=== PATIENT | male | born 1975 | race Caucasian/White ===

== ENCOUNTER 2017-07-10 19:07 | Inpatient (IN) | payer OTHER ==
[~2017-07-10] VITALS: Ht 167.6 cm; Wt 93.9 kg
[2017-07-10 22:48] LABS: BASOPHILS % 0.9 % (0.0-2.0); EOSINOPHILS % 4.2 % (0.0-5.0); HEMATOCRIT. 36.7 % (42.0-52.0); HEMOGLOBIN. 12.5 g/dL (14.0-18.0); LYMPHOCYTES % 25.1 % (20.0-50.0); MEAN CORPUSCULAR HEMOGLOBIN 33.8 pg (28.0-32.0); MEAN CORPUSCULAR VOLUME 99.6 fL (80.0-94.0); MEAN PLATELET VOLUME 8.3 fl (7.4-10.4); MONOCYTES % 10.5 % (2.0-8.0); NEUTROPHILS % 59.3 % (40.0-76.0); PLATELET 59 x1000/uL (130-400); RED BLOOD CELL COUNT 3.68 mill/uL (4.7-6.1)
[2017-07-10 22:54] LABS: INR 1.2; PROTHROMBIN TIME 12.7 sec (9.4-11.6)
[2017-07-10 22:58] LABS: CARBON DIOXIDE 27 mEq/L (21-32); CHLORIDE 104 mEq/L (98-107)
[2017-07-10 23:01] LABS: D-DIMER 3.93 mg/L FEU (<0.50)
[2017-07-11 00:29] LABS: CLARITY URINE CLEAR (CLEAR); COLOR URINE YELLOW (YELLOW); GLUCOSE URINE NEGATIVE (NEGATIVE); KETONES URINE NEGATIVE (NEGATIVE); LEUKOCYTE ESTERASE URINE NEGATIVE (NEGATIVE); NITRITE URINE NEGATIVE (NEGATIVE); OCCULT BLOOD URINE 2+ (NEGATIVE); PROTEIN URINE 3+ (NEGATIVE)
[2017-07-11 04:36] VITALS: BP 131/90
[2017-07-11] MEDS ORDERED: GLYPIZIDE PO (06:36)
[2017-07-11] MEDS ORDERED: METFORMIN (06:37)
[2017-07-11 08:00] VITALS: BP 121/88
[2017-07-11 12:00] VITALS: BP 147/101
[2017-07-11] MEDS ORDERED: DIPHENHYDRAMINE 50MG/ML VIAL IV PRN (12:00)
[2017-07-11] MEDS ORDERED: IPRATROPIUM/ALBUTEROL 0.5-3(2.5)MG/3ML NEB INH PRN (12:00)
[2017-07-11] MEDS ORDERED: ONDANSETRON HCL 4MG/2ML VIAL IV PRN (12:00)
[2017-07-11] MEDS ORDERED: ACETAMINOPHEN 325MG TABLET PO PRN (12:00)
[2017-07-11] MEDS ORDERED: DEXTROSE 50% WATER 50ML SYRINGE IV PRN (12:00)
[2017-07-11] MEDS: HYDROCODONE/ACETAMINOPHEN 5/325MG TABLET PO PRN ×2 (12:33→17:53)
[2017-07-11] MEDS: CLONIDINE 0.1MG TABLET PO PRN ×2 (12:33→17:53)
[2017-07-11] MEDS: INSULIN LISPRO 100 UNITS/ML SUBCUT SCH ×2 (12:40→18:36)
[2017-07-11] MEDS: BLOOD SUGAR DIAGNOSTIC STRIP TEST SCH ×2 (12:41→17:59)
[2017-07-11] MEDS ORDERED: LOSARTAN POTASSIUM 25 MG TABLET PO SCH (12:45)
[2017-07-11] MEDS ORDERED: ATOR20TA PO (15:47)
[2017-07-11] MEDS ORDERED: KDUR10 PO (15:47)
[2017-07-11] MEDS ORDERED: HYDR-4001 PO (15:47)
[2017-07-11] MEDS ORDERED: FURO10VI3 PO (15:47)
[2017-07-11] MEDS ORDERED: LOSA25TA3 PO (15:47)
[2017-07-11 16:00] VITALS: BP 142/102
[2017-07-11] MEDS ORDERED: MULT-1146 PO (16:00)
[2017-07-11] MEDS ORDERED: THIJ IM (16:00)
[2017-07-11] MEDS ORDERED: FUROSEMIDE 40MG/4ML VIAL IVP SCH (17:15)
[2017-07-11 18:17] LABS: HEPATITIS B SURFACE ANTIGEN NEGATIVE
[2017-07-11 18:46] LABS: HEPATITIS B CORE AB IGM NEGATIVE
[2017-07-11 18:47] VITALS: BP 123/87
[2017-07-11 18:47] LABS: HEPATITIS A AB IGM NEGATIVE (NEGATIVE)
[2017-07-11] MEDS ORDERED: ATORVASTATIN CALCIUM 20MG TABLET PO SCH (21:00)
== END 2017-07-11 19:48 | disposition home or self-care (01) | DRG 462 ==
LOC: EDBD 19:07 → ER 22:18 → 8WST 07-11 → ENRESERV 07-11 03:07
PROVIDERS: ADMIT Internal Medicine; ATTEND Internal Medicine
DX: N04.9 Nephrotic syndrome with unspecified morphologic changes (principal); E43 Unspecified severe protein-calorie malnutrition; K74.60 Unspecified cirrhosis of liver; E11.9 Type 2 diabetes mellitus without complications; D64.9 Anemia, unspecified; Z86.73 Personal history of transient ischemic attack (TIA), and cerebral infarction without residual deficits; Z79.899 Other long term (current) drug therapy; Z79.84 Long term (current) use of oral hypoglycemic drugs; Z68.33 Body mass index [BMI] 33.0-33.9, adult
CPT/HCPCS: 36415; 71010; 76700; 80053; 81001; 82962; 83036; 83880; 84484; 85025; 85379; 85610; 85730; 86705; 86709; 86803; 87040; 87340; 93005; 93970; 97162; 99285; J1815; J1940

== ENCOUNTER 2018-04-23 09:28 | Emergency (ER) | payer OTHER ==
[~2018-04-23] VITALS: Ht 177.8 cm; Wt 85.0 kg
[~2018-04-23 09:28] MED LIST: ATOR20TA PO; FURO10VI3 PO; GLYPIZIDE PO; HYDR-4001 PO; KDUR10 PO; LOSA25TA3 PO; METFORMIN; MULT-1146 PO; THIJ IM
[2018-04-23 10:11] LABS: BASOPHILS % 1.4 % (0.0-2.0); EOSINOPHILS % 1.7 % (0.0-5.0); HEMATOCRIT. 37.5 % (42.0-52.0); HEMOGLOBIN. 12.9 g/dL (14.0-18.0); LYMPHOCYTES % 20.5 % (20.0-50.0); MEAN CORPUSCULAR HEMOGLOBIN 33.4 pg (28.0-32.0); MEAN CORPUSCULAR VOLUME 97.3 fL (80.0-94.0); MEAN PLATELET VOLUME 7.5 fl (7.4-10.4); MONOCYTES % 8.4 % (2.0-8.0); PLATELET 70 x1000/uL (130-400); RED BLOOD CELL COUNT 3.85 mill/uL (4.7-6.1); RED CELL DISTRIBUTION WIDTH 14.3 % (11.6-14.6)
[2018-04-23 10:16] LABS: CHLORIDE 105 mEq/L (98-107)
[2018-04-23 10:17] LABS: INR 1.1; PROTHROMBIN TIME 11.5 sec (9.4-11.6)
[2018-04-23] MEDS ORDERED: TRAMADOL 50MG TABLET PO ONE (11:00)
[2018-04-23 11:32] LABS: CLARITY URINE CLEAR (CLEAR); COLOR URINE YELLOW (YELLOW); KETONES URINE NEGATIVE (NEGATIVE); LEUKOCYTE ESTERASE URINE NEGATIVE (NEGATIVE); NITRITE URINE NEGATIVE (NEGATIVE); OCCULT BLOOD URINE 2+ (NEGATIVE); PH URINE 5.5 (4.5-8.0); PROTEIN URINE 4+ (NEGATIVE); SPECIFIC GRAVITY URINE 1.007 (1.005-1.030); UROBILINOGEN URINE 0.2 E.U./dL (0.2-1.0)
[2018-04-23 13:19] VITALS: BP 138/94
== END 2018-04-23 13:27 | disposition home or self-care (01) ==
LOC: ER 09:56
DX: K74.60 Unspecified cirrhosis of liver (principal); R60.0 Localized edema; R32 Unspecified urinary incontinence; I10 Essential (primary) hypertension; E11.9 Type 2 diabetes mellitus without complications; Z86.73 Personal history of transient ischemic attack (TIA), and cerebral infarction without residual deficits; Z91.14 Patient's other noncompliance with medication regimen
CPT/HCPCS: 36415; 80053; 81003; 83690; 85025; 85610; 93005; 93970; 99285; Z7610

== ENCOUNTER 2018-08-01 23:52 | Emergency (ER) | payer OTHER ==
[~2018-08-01] VITALS: Ht 165.1 cm; Wt 73.0 kg
[2018-08-02] MEDS ORDERED: KETOROLAC 30MG/ML VIAL IV ONE (05:00)
[2018-08-02 05:24] VITALS: BP 124/78
== END 2018-08-02 05:00 | disposition home or self-care (01) ==
LOC: ER 23:52
DX: S00.83XA Contusion of other part of head, initial encounter (principal); I10 Essential (primary) hypertension; Z86.73 Personal history of transient ischemic attack (TIA), and cerebral infarction without residual deficits; Z98.890 Other specified postprocedural states; Z79.899 Other long term (current) drug therapy; W18.39XA Other fall on same level, initial encounter; Y93.89 Activity, other specified; Y92.89 Other specified places as the place of occurrence of the external cause; Y99.8 Other external cause status
CPT/HCPCS: 36415; 70450; 96374; 99285; G0482; J1885; Z7610

== ENCOUNTER 2018-11-09 19:09 | Inpatient (IN) | payer MEDICAID, OTHER ==
[~2018-11-09] VITALS: Ht 167.6 cm; Wt 93.2 kg
[2018-11-09] MEDS ORDERED: FUROSEMIDE 40MG/4ML VIAL IVP ONE (19:45)
[2018-11-09 20:36] LABS: BASOPHILS % 0.8 % (0.0-2.0); EOSINOPHILS % 3.6 % (0.0-5.0); HEMATOCRIT. 26.8 % (42.0-52.0); HEMOGLOBIN. 8.8 g/dL (14.0-18.0); LYMPHOCYTES % 16.2 % (20.0-50.0); MEAN CORPUSCULAR HEMOGLOBIN 30.7 pg (28.0-32.0); MEAN CORPUSCULAR VOLUME 93.1 fL (80.0-94.0); MEAN PLATELET VOLUME 7.8 fl (7.4-10.4); MONOCYTES % 7.9 % (2.0-8.0); NEUTROPHILS % 71.5 % (40.0-76.0); PLATELET 141 x1000/uL (130-400); RED BLOOD CELL COUNT 2.88 mill/uL (4.7-6.1); RED CELL DISTRIBUTION WIDTH 15.3 % (11.6-14.6)
[2018-11-09 20:44] LABS: CHLORIDE 109 mEq/L (98-107)
[2018-11-09 20:45] LABS: INR 1.2; PARTIAL THROMBOPLASTIN TIME 29.3 sec (23.4-31.0); PROTHROMBIN TIME 11.6 sec (9.1-11.1)
[2018-11-09 20:51] LABS: ETHANOL BLOOD 153 mg/dL
[2018-11-10 11:46] VITALS: BP 139/79
[2018-11-10 11:47] VITALS: BP 139/79
[2018-11-10] MEDS ORDERED: METF-414 PO (12:16)
[2018-11-10] MEDS ORDERED: IPRATROPIUM/ALBUTEROL 0.5-3(2.5)MG/3ML NEB INH PRN (12:45)
[2018-11-10] MEDS ORDERED: ONDANSETRON HCL 4MG/2ML INJ IV PRN (12:45)
[2018-11-10] MEDS ORDERED: LORAZEPAM 2MG/ML CPJ IV PRN (12:45)
[2018-11-10] MEDS ORDERED: ACETAMINOPHEN 325MG TABLET PO PRN (12:45)
[2018-11-10] MEDS ORDERED: CLONIDINE 0.1MG TABLET PO PRN (12:45)
[2018-11-10] MEDS ORDERED: DOCUSATE SODIUM 100MG CAPSULE PO PRN (12:45)
[2018-11-10] MEDS ORDERED: CLONIDINE 0.2MG TABLET PO PRN (13:15)
[2018-11-10 14:42] LABS: HEPATITIS B SURFACE ANTIGEN NEGATIVE
[2018-11-10 15:12] LABS: HEPATITIS A AB IGM NEGATIVE (NEGATIVE)
[2018-11-10] MEDS: HYDRALAZINE HCL 50MG TABLET PO SCH ×2 (15:43→21:09)
[2018-11-10] MEDS: LOSARTAN POTASSIUM 25 MG TABLET PO SCH ×2 (15:43→23:19)
[2018-11-10] MEDS: POTASSIUM CHLORIDE 20MEQ TABLET SR PO SCH ×2 (15:43→20:47)
[2018-11-10] MEDS: FUROSEMIDE 40MG/4ML VIAL IVP SCH ×2 (15:43→20:43)
[2018-11-10 16:38] VITALS: BP 138/93
[2018-11-10] MEDS ORDERED: DEXTROSE 50% WATER 50ML SYRINGE IV PRN (19:00)
[2018-11-10 20:30] VITALS: BP 124/84
[2018-11-10] MEDS ORDERED: PNEUMOCOCCAL 23-VAL P-SAC VAC 0.5 ML IM ONE (20:30)
[2018-11-10] MEDS ORDERED: INFLUENZA VIRUS VACCINE(AFLURIA) 0.5ML SYR IM ONE (20:30)
[2018-11-10] MEDS: BLOOD SUGAR DIAGNOSTIC STRIP TEST SCH (20:48)
[2018-11-10] MEDS: INSULIN LISPRO 100 UNITS/ML SUBCUT SCH (20:48)
[2018-11-10 23:17] VITALS: BP 133/89
[2018-11-10] MEDS: HYDROCODONE/ACETAMINOPHEN 5/325MG TABLET PO PRN (23:20)
[2018-11-11 04:00] VITALS: BP 120/79
[2018-11-11] MEDS: HYDRALAZINE HCL 50MG TABLET PO SCH ×3 (05:16→22:00)
[2018-11-11 06:18] LABS: CHLORIDE 114 mEq/L (98-107)
[2018-11-11 06:23] LABS: BASOPHILS % 0.9 % (0.0-2.0); EOSINOPHILS % 9.8 % (0.0-5.0); HEMATOCRIT. 25.7 % (42.0-52.0); HEMOGLOBIN. 8.5 g/dL (14.0-18.0); LYMPHOCYTES % 20.9 % (20.0-50.0); MEAN CORPUSCULAR HEMOGLOBIN 30.9 pg (28.0-32.0); MEAN CORPUSCULAR VOLUME 93.2 fL (80.0-94.0); MEAN PLATELET VOLUME 8.4 fl (7.4-10.4); MONOCYTES % 10.1 % (2.0-8.0); NEUTROPHILS % 58.3 % (40.0-76.0); PLATELET 113 x1000/uL (130-400); RED BLOOD CELL COUNT 2.76 mill/uL (4.7-6.1); RED CELL DISTRIBUTION WIDTH 15.4 % (11.6-14.6)
[2018-11-11 06:32] LABS: PHOSPHORUS 4.1 mg/dL (2.5-4.9)
[2018-11-11 06:33] LABS: LDL CHOLESTEROL 59 mg/dL (5-100)
[2018-11-11 06:34] LABS: CREATINE KINASE 282 IU/L (39-308); CREATINE KINASE MB FRACTION 6.2 ng/mL (0.5-3.6)
[2018-11-11 06:35] LABS: HDL CHOLESTEROL 48 mg/dL (40-59)
[2018-11-11 08:00] VITALS: BP 121/73
[2018-11-11] MEDS: INSULIN LISPRO 100 UNITS/ML SUBCUT SCH ×4 (08:03→21:00)
[2018-11-11] MEDS: BLOOD SUGAR DIAGNOSTIC STRIP TEST SCH ×4 (08:03→21:00)
[2018-11-11] MEDS: LOSARTAN POTASSIUM 25 MG TABLET PO SCH ×2 (08:16→21:00)
[2018-11-11] MEDS: POTASSIUM CHLORIDE 20MEQ TABLET SR PO SCH ×2 (08:28→16:15)
[2018-11-11] MEDS: FUROSEMIDE 40MG/4ML VIAL IVP SCH ×2 (08:28→16:15)
[2018-11-11 12:00] VITALS: BP 134/87
[2018-11-11 16:00] VITALS: BP 123/83
[2018-11-11 20:00] VITALS: BP 114/78
[2018-11-11 22:04] LABS: HEMATOCRIT 24.5 % (42.0-52.0); HEMOGLOBIN 8.1 g/dL (14.0-18.0)
[2018-11-12] VITALS: BP 120/52
[2018-11-12 04:00] VITALS: BP 122/88
[2018-11-12] MEDS: HYDRALAZINE HCL 50MG TABLET PO SCH ×3 (06:00→21:15)
[2018-11-12 06:42] LABS: BASOPHILS % 0.6 % (0.0-2.0); EOSINOPHILS % 11.1 % (0.0-5.0); HEMATOCRIT. 25.1 % (42.0-52.0); HEMOGLOBIN. 8.3 g/dL (14.0-18.0); LYMPHOCYTES % 18.2 % (20.0-50.0); MEAN CORPUSCULAR HEMOGLOBIN 30.7 pg (28.0-32.0); MEAN CORPUSCULAR VOLUME 92.9 fL (80.0-94.0); MEAN PLATELET VOLUME 8.9 fl (7.4-10.4); MONOCYTES % 10.4 % (2.0-8.0); NEUTROPHILS % 59.7 % (40.0-76.0); PLATELET 96 x1000/uL (130-400); RED CELL DISTRIBUTION WIDTH 15.8 % (11.6-14.6)
[2018-11-12 06:44] LABS: INR 1.2; PARTIAL THROMBOPLASTIN TIME 27.8 sec (23.4-31.0); PROTHROMBIN TIME 11.7 sec (9.1-11.1)
[2018-11-12 06:54] LABS: CHLORIDE 115 mEq/L (98-107)
[2018-11-12 07:03] LABS: FERRITIN 83 ng/mL (22-322)
[2018-11-12 07:06] LABS: TOTAL IRON BINDING CAPACITY 164 ug/dL (250-450)
[2018-11-12] MEDS: BLOOD SUGAR DIAGNOSTIC STRIP TEST SCH ×4 (07:37→21:15)
[2018-11-12] MEDS: INSULIN LISPRO 100 UNITS/ML SUBCUT SCH ×4 (07:38→21:00)
[2018-11-12 07:47] LABS: VITAMIN B12 SERUM 1349 pg/mL (211-911)
[2018-11-12 08:18] VITALS: BP 140/84
[2018-11-12] MEDS ORDERED: PANTOPRAZOLE SODIUM 40 MG/VIAL IV SCH (09:00)
[2018-11-12] MEDS: LOSARTAN POTASSIUM 25 MG TABLET PO SCH ×2 (09:20→21:00)
[2018-11-12] MEDS: POTASSIUM CHLORIDE 20MEQ TABLET SR PO SCH ×2 (09:20→17:04)
[2018-11-12] MEDS: FUROSEMIDE 40MG/4ML VIAL IVP SCH ×2 (09:21→17:04)
[2018-11-12] MEDS ORDERED: SIMETHICONE 40 MG/0.6 ML 30ML ONE (12:36)
[2018-11-12 13:00] VITALS: BP 131/90
[2018-11-12] MEDS ORDERED: PROPOFOL 200MG/20ML VIAL IV ONE (13:41)
[2018-11-12] MEDS ORDERED: FENTANYL CITRATE/PF 50MCG/ML 2ML VIAL IV PRN (14:30)
[2018-11-12] MEDS ORDERED: ONDANSETRON HCL 4MG/2ML INJ IV PRN (14:30)
[2018-11-12] MEDS ORDERED: MORPHINE SULFATE 4 MG/ML CPJ (NOT FOR IM USE) IV PRN (14:30)
[2018-11-12] MEDS ORDERED: HYDROMORPHONE HCL/PF 2MG/ML CPJ IV PRN (14:30)
[2018-11-12] MEDS ORDERED: MEPERIDINE HCL/PF 25MG/ML CPJ IV PRN (14:30)
[2018-11-12 17:17] VITALS: BP 108/72
[2018-11-12 20:00] VITALS: BP 126/93
[2018-11-12 20:12] LABS: HEMATOCRIT 28.2 % (42.0-52.0); HEMOGLOBIN 9.2 g/dL (14.0-18.0)
[2018-11-12] MEDS: FAMOTIDINE 20MG TABLET PO SCH (21:16)
[2018-11-13] VITALS: BP 134/92
[2018-11-13 04:00] VITALS: BP 139/90
[2018-11-13] MEDS: HYDRALAZINE HCL 50MG TABLET PO SCH ×3 (06:00→21:47)
[2018-11-13] MEDS: INSULIN LISPRO 100 UNITS/ML SUBCUT SCH ×4 (06:54→21:55)
[2018-11-13] MEDS: BLOOD SUGAR DIAGNOSTIC STRIP TEST SCH ×4 (06:54→21:47)
[2018-11-13 07:10] LABS: BASOPHILS % 0.7 % (0.0-2.0); EOSINOPHILS % 9.1 % (0.0-5.0); HEMATOCRIT. 27.1 % (42.0-52.0); HEMOGLOBIN. 8.8 g/dL (14.0-18.0); LYMPHOCYTES % 14.1 % (20.0-50.0); MEAN CORPUSCULAR HEMOGLOBIN 30.7 pg (28.0-32.0); MEAN CORPUSCULAR VOLUME 94.4 fL (80.0-94.0); MEAN PLATELET VOLUME 8.8 fl (7.4-10.4); MONOCYTES % 9.1 % (2.0-8.0); PLATELET 100 x1000/uL (130-400); RED BLOOD CELL COUNT 2.87 mill/uL (4.7-6.1); RED CELL DISTRIBUTION WIDTH 15.6 % (11.6-14.6)
[2018-11-13 07:21] LABS: CHLORIDE 116 mEq/L (98-107)
[2018-11-13 08:00] VITALS: BP 130/86
[2018-11-13 09:09] LABS: FOLATE HEMATOCRIT 24.8 % (37.5-51.0)
[2018-11-13] MEDS: FUROSEMIDE 40MG/4ML VIAL IVP SCH ×2 (09:20→17:55)
[2018-11-13] MEDS: LOSARTAN POTASSIUM 25 MG TABLET PO SCH ×2 (09:21→21:47)
[2018-11-13] MEDS: POTASSIUM CHLORIDE 20MEQ TABLET SR PO SCH ×2 (09:21→17:55)
[2018-11-13] MEDS: FAMOTIDINE 20MG TABLET PO SCH ×2 (09:21→21:47)
[2018-11-13] MEDS: HYDROCODONE/ACETAMINOPHEN 5/325MG TABLET PO PRN (09:22)
[2018-11-13] MEDS ORDERED: LIDOCAINE HCL 1% 20ML VIAL (Pyxis) INJ ONE (10:54)
[2018-11-13] MEDS ORDERED: SODIUM BICARBONATE 4% (2.4MEQ) 5ML VIAL IV ONE (10:55)
[2018-11-13 12:00] VITALS: BP 127/84
[2018-11-13 16:00] VITALS: BP 132/89
[2018-11-13 19:11] LABS: FOLATE HEMOLYSATE 335.4 ng/mL (Not Estab.); FOLATE RBC 1352 ng/mL (>498)
[2018-11-13 20:00] VITALS: BP 126/85
[2018-11-13] MEDS: PROPRANOLOL HCL 10MG TABLET PO SCH (21:47)
[2018-11-14] VITALS: BP 117/77
[2018-11-14 02:17] LABS: *AMPHETAMINES SCREEN URINE NEGATIVE (NEGATIVE); *BARBITURATES SCREEN URINE NEGATIVE (NEGATIVE); *BENZODIAZEPINES SCREEN URINE NEGATIVE (NEGATIVE)
[2018-11-14 02:18] LABS: *COCAINE SCREEN URINE NEGATIVE (NEGATIVE); CANNABINOID URINE SCREEN NEGATIVE (NEGATIVE); METHADONE URINE SCREEN NEGATIVE (NEGATIVE); OPIATES URINE SCREEN PRESUMTIVE POSITIVE (NEGATIVE); PHENCYCLIDINE URINE SCREEN NEGATIVE (NEGATIVE)
[2018-11-14 04:00] VITALS: BP 117/69
[2018-11-14] MEDS: INSULIN LISPRO 100 UNITS/ML SUBCUT SCH ×2 (06:40→13:10)
[2018-11-14] MEDS: HYDRALAZINE HCL 50MG TABLET PO SCH (06:40)
[2018-11-14] MEDS: BLOOD SUGAR DIAGNOSTIC STRIP TEST SCH ×2 (06:40→12:40)
[2018-11-14 07:41] LABS: BASOPHILS % 0.7 % (0.0-2.0); EOSINOPHILS % 10.1 % (0.0-5.0); HEMATOCRIT. 24.7 % (42.0-52.0); HEMOGLOBIN. 8.2 g/dL (14.0-18.0); LYMPHOCYTES % 17.2 % (20.0-50.0); MEAN CORPUSCULAR HEMOGLOBIN 31.1 pg (28.0-32.0); MEAN CORPUSCULAR VOLUME 93.6 fL (80.0-94.0); MEAN PLATELET VOLUME 9.6 fl (7.4-10.4); MONOCYTES % 10.7 % (2.0-8.0); NEUTROPHILS % 61.3 % (40.0-76.0); PLATELET 89 x1000/uL (130-400); RED BLOOD CELL COUNT 2.64 mill/uL (4.7-6.1); RED CELL DISTRIBUTION WIDTH 15.7 % (11.6-14.6)
[2018-11-14] MEDS: LOSARTAN POTASSIUM 25 MG TABLET PO SCH (08:31)
[2018-11-14] MEDS: FUROSEMIDE 40MG/4ML VIAL IVP SCH (08:31)
[2018-11-14] MEDS: FAMOTIDINE 20MG TABLET PO SCH (08:31)
[2018-11-14] MEDS: POTASSIUM CHLORIDE 20MEQ TABLET SR PO SCH (08:31)
[2018-11-14] MEDS: PROPRANOLOL HCL 10MG TABLET PO SCH (08:31)
[2018-11-14 09:20] LABS: CHLORIDE 115 mEq/L (98-107)
[2018-11-14 16:43] VITALS: BP 120/65
== END 2018-11-14 17:17 | disposition home or self-care (01) | DRG 280 ==
LOC: ER 19:09 → 7WST 23:40 → EDBEDREQ 11-10 00:19 → EDBEDREQDT 11-10 00:19 → EDBEDREQTM 11-10 00:19 → ENRESERV 11-10 10:32
PROVIDERS: ADMIT Internal Medicine; ATTEND Internal Medicine
PROC: 0DB78ZX Excision of Stomach, Pylorus, Via Natural or Artificial Opening Endoscopic, Diagnostic (ICD-10-PCS; 2018-11-12)
PROC: 0W9G3ZZ Drainage of Peritoneal Cavity, Percutaneous Approach (ICD-10-PCS; principal; 2018-11-13)
DX: K70.31 Alcoholic cirrhosis of liver with ascites (principal); D69.6 Thrombocytopenia, unspecified; E66.01 Morbid (severe) obesity due to excess calories; I11.0 Hypertensive heart disease with heart failure; I50.9 Heart failure, unspecified; E88.09 Other disorders of plasma-protein metabolism, not elsewhere classified; I85.10 Secondary esophageal varices without bleeding; K76.6 Portal hypertension; E11.9 Type 2 diabetes mellitus without complications; D63.8 Anemia in other chronic diseases classified elsewhere; J45.909 Unspecified asthma, uncomplicated; Y90.6 Blood alcohol level of 120-199 mg/100 ml; N50.89 Other specified disorders of the male genital organs; R79.1 Abnormal coagulation profile; R80.9 Proteinuria, unspecified; F10.229 Alcohol dependence with intoxication, unspecified; R16.2 Hepatomegaly with splenomegaly, not elsewhere classified; K29.70 Gastritis, unspecified, without bleeding; K31.89 Other diseases of stomach and duodenum; K80.20 Calculus of gallbladder without cholecystitis without obstruction; Z86.73 Personal history of transient ischemic attack (TIA), and cerebral infarction without residual deficits; Z79.899 Other long term (current) drug therapy; Z79.84 Long term (current) use of oral hypoglycemic drugs; Z68.33 Body mass index [BMI] 33.0-33.9, adult
CPT/HCPCS: 36415; 49083; 71045; 74176; 76705; 78582; 80048; 80061; 80076; 80305; 82040; 82105; 82140; 82270; 82550; 82553; 82607; 82728; 82747; 82962; 83036; 83540; 83550; 83615; 83735; 83880; 84100; 84443; 84484; 85014; 85018; 85379; 86705; 86709; 86803; 87340; 88108; 88305; 88312; 88313; 90686; 90732; 93005; 93306; 93970; 96374; 99285; A9558; C9113; G0482; J1815; J1940; J2704; J3490

== ENCOUNTER 2018-11-28 09:06 | Inpatient (IN) | payer MEDICAID, OTHER ==
[~2018-11-28] VITALS: Ht 162.6 cm; Wt 105.2 kg
[~2018-11-28 09:06] MED LIST changes: +METF-414 PO
[2018-11-28 10:05] LABS: BG BASE EXCESS -8.9 mmol/L (-2.0-2.0); BG CARBOXYHEMOGLOBIN 0.9 % (0.5-1.5); BG DEOXYHEMOGLOBIN 1.4 % (0.0-5.0); BG FRACTION INSPIRED OXYGEN 32; BG HCO3 ACT 17.2 mmol/L (22.0-26.0); BG METHEMOGLOBIN 0.4 % (0.0-1.5); BG OXYGEN SATURATION 98.6 % (92.0-98.5); BG OXYHEMOGLOBIN 97.3 % (94.0-97.0); BG PCO2 37.9 mmHg (35.0-45.0); BG PH 7.274 (7.350-7.450); BG PO2 144.7 mmHg (75.0-100.0); BG SAMPLE SITE RIGHT RADIAL; BG TOTAL HEMOGLOBIN 7.9 g/dL (12.0-18.0); BG VENT MODE NASAL CANNULA
[2018-11-28 10:21] LABS: BASOPHILS % 0.8 % (0.0-2.0); EOSINOPHILS % 7.3 % (0.0-5.0); HEMATOCRIT. 23.5 % (42.0-52.0); HEMOGLOBIN. 7.5 g/dL (14.0-18.0); LYMPHOCYTES % 16.8 % (20.0-50.0); MEAN CORPUSCULAR HEMOGLOBIN 30.2 pg (28.0-32.0); MEAN CORPUSCULAR VOLUME 95.3 fL (80.0-94.0); MEAN PLATELET VOLUME 8.6 fl (7.4-10.4); MONOCYTES % 10.1 % (2.0-8.0); PLATELET 143 x1000/uL (130-400); RED BLOOD CELL COUNT 2.46 mill/uL (4.7-6.1); RED CELL DISTRIBUTION WIDTH 15.7 % (11.6-14.6)
[2018-11-28 10:28] LABS: CHLORIDE 117 mEq/L (98-107)
[2018-11-28 10:36] LABS: ETHANOL BLOOD < 10 mg/dL
[2018-11-28] MEDS ORDERED: DEXTROSE 50% WATER 50ML SYRINGE IV ONE (10:45)
[2018-11-28] MEDS ORDERED: FUROSEMIDE 100MG/10ML VIAL IV ONE (10:45)
[2018-11-28] MEDS ORDERED: CALCIUM GLUCONATE 1,000 MG in DEXT 5% WATER 100 ML IV ONE (10:45)
[2018-11-28] MEDS ORDERED: INSULIN REGULAR (HUMULIN R) 300UNITS/3ML IV ONE (10:45)
[2018-11-28] MEDS ORDERED: CLONIDINE 0.1MG TABLET PO PRN (14:15)
[2018-11-28] MEDS ORDERED: DOCUSATE SODIUM 100MG CAPSULE PO PRN (14:15)
[2018-11-28] MEDS ORDERED: IPRATROPIUM/ALBUTEROL 0.5-3(2.5)MG/3ML NEB INH PRN (14:15)
[2018-11-28] MEDS ORDERED: LORAZEPAM 0.5MG TABLET PO PRN (14:15)
[2018-11-28] MEDS ORDERED: ONDANSETRON HCL 4MG/2ML INJ IV PRN (14:15)
[2018-11-28] MEDS ORDERED: ACETAMINOPHEN 325MG TABLET PO PRN (14:15)
[2018-11-28 14:16] VITALS: BP 133/89
[2018-11-28 14:37] VITALS: BP 133/89
[2018-11-28] MEDS ORDERED: IPRATROPIUM/ALBUTEROL 0.5-3(2.5)MG/3ML NEB HHN PRN (15:00)
[2018-11-28 15:48] LABS: FOLIC ACID (FOLATE) SERUM 8.3 ng/mL (>5.38)
[2018-11-28 15:57] LABS: INR 1.2; PARTIAL THROMBOPLASTIN TIME 29.6 sec (23.4-31.0); PROTHROMBIN TIME 11.6 sec (9.1-11.1)
[2018-11-28 16:00] VITALS: BP 136/80
[2018-11-28 16:00] LABS: BG BASE EXCESS -9.2 mmol/L (-2.0-2.0); BG CARBOXYHEMOGLOBIN 0.5 % (0.5-1.5); BG DEOXYHEMOGLOBIN 1.6 % (0.0-5.0); BG FRACTION INSPIRED OXYGEN 28; BG HCO3 ACT 16.7 mmol/L (22.0-26.0); BG METHEMOGLOBIN 0.4 % (0.0-1.5); BG OXYGEN SATURATION 98.4 % (92.0-98.5); BG OXYHEMOGLOBIN 97.5 % (94.0-97.0); BG PCO2 35.8 mmHg (35.0-45.0); BG PH 7.286 (7.350-7.450); BG PO2 135.5 mmHg (75.0-100.0); BG SAMPLE SITE RIGHT RADIAL; BG TOTAL HEMOGLOBIN 8.1 g/dL (12.0-18.0); BG VENT MODE NASAL CANNULA
[2018-11-28] MEDS: FUROSEMIDE 40MG/4ML VIAL IVP SCH (18:01)
[2018-11-28] MEDS: IPRATROPIUM/ALBUTEROL 0.5-3(2.5)MG/3ML NEB HHN SCH (19:45)
[2018-11-28 20:00] VITALS: BP 116/70
[2018-11-28 23:54] LABS: CLARITY URINE CLEAR (CLEAR); COLOR URINE YELLOW (YELLOW); KETONES URINE NEGATIVE (NEGATIVE); LEUKOCYTE ESTERASE URINE NEGATIVE (NEGATIVE); NITRITE URINE NEGATIVE (NEGATIVE); OCCULT BLOOD URINE 1+ (NEGATIVE); PROTEIN URINE 2+ (NEGATIVE); SPECIFIC GRAVITY URINE 1.009 (1.005-1.030); UROBILINOGEN URINE 0.2 E.U./dL (0.2-1.0)
[2018-11-29] VITALS (9 sets, daily range): BP systolic 111–144; BP diastolic 60–90
[2018-11-29 00:17] LABS: *BENZODIAZEPINES SCREEN URINE NEGATIVE (NEGATIVE); *COCAINE SCREEN URINE NEGATIVE (NEGATIVE); METHADONE URINE SCREEN NEGATIVE (NEGATIVE); PHENCYCLIDINE URINE SCREEN NEGATIVE (NEGATIVE)
[2018-11-29 00:18] LABS: CANNABINOID URINE SCREEN NEGATIVE (NEGATIVE)
[2018-11-29 00:19] LABS: *AMPHETAMINES SCREEN URINE NEGATIVE (NEGATIVE); *BARBITURATES SCREEN URINE NEGATIVE (NEGATIVE)
[2018-11-29 00:21] LABS: OPIATES URINE SCREEN NEGATIVE (NEGATIVE)
[2018-11-29] MEDS: IPRATROPIUM/ALBUTEROL 0.5-3(2.5)MG/3ML NEB HHN SCH ×2 (02:06→08:18)
[2018-11-29 05:55] LABS: BASOPHILS % 0.9 % (0.0-2.0); HEMATOCRIT. 21.2 % (42.0-52.0); LYMPHOCYTES % 21.6 % (20.0-50.0); MEAN CORPUSCULAR HEMOGLOBIN 30.7 pg (28.0-32.0); MEAN CORPUSCULAR VOLUME 93.8 fL (80.0-94.0); MEAN PLATELET VOLUME 8.8 fl (7.4-10.4); MONOCYTES % 13.9 % (2.0-8.0); NEUTROPHILS % 56.6 % (40.0-76.0); PLATELET 120 x1000/uL (130-400); RED BLOOD CELL COUNT 2.26 mill/uL (4.7-6.1); RED CELL DISTRIBUTION WIDTH 15.5 % (11.6-14.6)
[2018-11-29] MEDS: FUROSEMIDE 40MG/4ML VIAL IVP SCH ×2 (06:44→06:50)
[2018-11-29 06:46] LABS: HEMOGLOBIN. 6.9 g/dL (14.0-18.0)
[2018-11-29] MEDS ORDERED: SPIRONOLACTONE 25MG TABLET PO SCH (09:00)
[2018-11-29] MEDS ORDERED: THIAMINE HCL 100 MG/1 ML 2ML VIAL IM SCH (09:00)
[2018-11-29] MEDS: THIAMINE HCL 100MG TABLET PO SCH (09:13)
[2018-11-29] MEDS ORDERED: SODIUM BICARBONATE 8.4% 1 MEQ/ML 50ML SYR IV STA (09:48)
[2018-11-29] MEDS ORDERED: DEXTROSE 50% WATER 50ML SYRINGE IV STA (09:48)
[2018-11-29] MEDS ORDERED: INSULIN REGULAR (HUMULIN R) UD 100 UNITS/ML SYR IV SCH (09:48)
[2018-11-29] MEDS ORDERED: SODIUM POLYSTYRENE SULFONATE 15 G/60 ML BOT PO SCH (10:00)
[2018-11-29] MEDS ORDERED: FUROSEMIDE 40MG/4ML VIAL IVP SCH (12:00)
[2018-11-29 12:54] LABS: BG BASE EXCESS -7.7 mmol/L (-2.0-2.0); BG CARBOXYHEMOGLOBIN 0.8 % (0.5-1.5); BG DEOXYHEMOGLOBIN 3.1 % (0.0-5.0); BG METHEMOGLOBIN 0.1 % (0.0-1.5); BG OXYGEN SATURATION 96.9 % (92.0-98.5); BG PCO2 30.5 mmHg (35.0-45.0); BG PH 7.363 (7.350-7.450); BG PO2 97.2 mmHg (75.0-100.0); BG SAMPLE SITE RIGHT RADIAL; BG TOTAL HEMOGLOBIN 7.1 g/dL (12.0-18.0); BG VENT MODE ROOM AIR
[2018-11-29] MEDS: ALBUTEROL (0.083%) 2.5MG/3ML NEB HHN SCH ×2 (15:45→20:25)
[2018-11-29] MEDS: ATORVASTATIN CALCIUM 20MG TABLET PO SCH (20:41)
[2018-11-30] VITALS (7 sets, daily range): BP systolic 119–171; BP diastolic 74–103
[2018-11-30] MEDS: ALBUTEROL (0.083%) 2.5MG/3ML NEB HHN SCH ×6 (00:07→21:28)
[2018-11-30] MEDS ORDERED: DEXTROSE 50% WATER 50ML SYRINGE IV PRN (00:45)
[2018-11-30 08:08] LABS: BASOPHILS % 0.8 % (0.0-2.0); EOSINOPHILS % 7.1 % (0.0-5.0); HEMATOCRIT. 23.4 % (42.0-52.0); HEMOGLOBIN. 7.6 g/dL (14.0-18.0); LYMPHOCYTES % 20.4 % (20.0-50.0); MEAN CORPUSCULAR HEMOGLOBIN 30.2 pg (28.0-32.0); MEAN CORPUSCULAR VOLUME 92.7 fL (80.0-94.0); MEAN PLATELET VOLUME 8.7 fl (7.4-10.4); MONOCYTES % 13.3 % (2.0-8.0); NEUTROPHILS % 58.4 % (40.0-76.0); PLATELET 103 x1000/uL (130-400); RED BLOOD CELL COUNT 2.52 mill/uL (4.7-6.1); RED CELL DISTRIBUTION WIDTH 16.5 % (11.6-14.6)
[2018-11-30] MEDS: INSULIN LISPRO 100 UNITS/ML SUBCUT SCH ×4 (08:10→20:43)
[2018-11-30] MEDS: THIAMINE HCL 100MG TABLET PO SCH (08:29)
[2018-11-30] MEDS: FUROSEMIDE 40MG/4ML VIAL IVP SCH ×2 (08:30→17:05)
[2018-11-30] MEDS: BLOOD SUGAR DIAGNOSTIC STRIP TEST SCH ×4 (08:37→20:37)
[2018-11-30] MEDS: CITRIC ACID/SODIUM CITRATE SOLN 30ML UDC PO SCH (17:05)
[2018-11-30] MEDS: ATORVASTATIN CALCIUM 20MG TABLET PO SCH (20:44)
[2018-11-30] MEDS: HYDROCODONE/ACETAMINOPHEN 5/325MG TABLET PO PRN (20:44)
[2018-12-01] VITALS: BP 128/80
[2018-12-01] MEDS: ALBUTEROL (0.083%) 2.5MG/3ML NEB HHN SCH ×7 (00:46→23:49)
[2018-12-01] MEDS: FUROSEMIDE 40MG/4ML VIAL IVP SCH ×2 (06:22→17:10)
[2018-12-01] MEDS: BLOOD SUGAR DIAGNOSTIC STRIP TEST SCH ×4 (06:22→20:10)
[2018-12-01] MEDS: HYDROCODONE/ACETAMINOPHEN 5/325MG TABLET PO PRN ×2 (06:23→20:45)
[2018-12-01 06:54] LABS: BASOPHILS % 0.6 % (0.0-2.0); HEMATOCRIT. 22.4 % (42.0-52.0); HEMOGLOBIN. 7.3 g/dL (14.0-18.0); LYMPHOCYTES % 19.8 % (20.0-50.0); MEAN CORPUSCULAR HEMOGLOBIN 30.2 pg (28.0-32.0); MEAN CORPUSCULAR VOLUME 92.4 fL (80.0-94.0); MONOCYTES % 14.3 % (2.0-8.0); NEUTROPHILS % 58.3 % (40.0-76.0); PLATELET 103 x1000/uL (130-400); RED BLOOD CELL COUNT 2.43 mill/uL (4.7-6.1); RED CELL DISTRIBUTION WIDTH 15.7 % (11.6-14.6)
[2018-12-01] MEDS: INSULIN LISPRO 100 UNITS/ML SUBCUT SCH ×4 (08:06→20:10)
[2018-12-01 08:07] VITALS: BP 126/80
[2018-12-01] MEDS: THIAMINE HCL 100MG TABLET PO SCH (08:55)
[2018-12-01] MEDS: CITRIC ACID/SODIUM CITRATE SOLN 30ML UDC PO SCH ×3 (08:55→17:09)
[2018-12-01 12:00] VITALS: BP 142/82
[2018-12-01 16:00] VITALS: BP 143/80
[2018-12-01 17:11] VITALS: BP 143/80
[2018-12-01 20:42] VITALS: BP 157/92
[2018-12-01] MEDS: ATORVASTATIN CALCIUM 20MG TABLET PO SCH (20:44)
[2018-12-02 00:29] VITALS: BP 133/79
[2018-12-02 04:00] VITALS: BP 130/77
[2018-12-02] MEDS: ALBUTEROL (0.083%) 2.5MG/3ML NEB HHN SCH ×2 (04:02→15:11)
[2018-12-02] MEDS: FUROSEMIDE 40MG/4ML VIAL IVP SCH ×2 (06:14→18:15)
[2018-12-02] MEDS: BLOOD SUGAR DIAGNOSTIC STRIP TEST SCH ×3 (06:28→18:15)
[2018-12-02] MEDS: HYDROCODONE/ACETAMINOPHEN 5/325MG TABLET PO PRN (06:54)
[2018-12-02 07:53] LABS: PHOSPHORUS 4.6 mg/dL (2.5-4.9)
[2018-12-02 08:00] VITALS: BP 142/87
[2018-12-02] MEDS: INSULIN LISPRO 100 UNITS/ML SUBCUT SCH ×3 (08:10→18:56)
[2018-12-02 08:11] LABS: BASOPHILS % 0.5 % (0.0-2.0); EOSINOPHILS % 7.6 % (0.0-5.0); HEMATOCRIT. 22.1 % (42.0-52.0); HEMOGLOBIN. 7.1 g/dL (14.0-18.0); LYMPHOCYTES % 24.3 % (20.0-50.0); MEAN CORPUSCULAR HEMOGLOBIN 29.7 pg (28.0-32.0); MEAN CORPUSCULAR VOLUME 92.4 fL (80.0-94.0); MEAN PLATELET VOLUME 8.9 fl (7.4-10.4); MONOCYTES % 13.2 % (2.0-8.0); NEUTROPHILS % 54.4 % (40.0-76.0); PLATELET 88 x1000/uL (130-400); RED BLOOD CELL COUNT 2.39 mill/uL (4.7-6.1); RED CELL DISTRIBUTION WIDTH 15.8 % (11.6-14.6)
[2018-12-02] MEDS: LACTULOSE 20G/30ML UDC PO SCH ×2 (09:44→18:15)
[2018-12-02] MEDS: THIAMINE HCL 100MG TABLET PO SCH (09:45)
[2018-12-02] MEDS: CITRIC ACID/SODIUM CITRATE SOLN 30ML UDC PO SCH ×3 (09:45→18:00)
[2018-12-02 12:15] VITALS: BP 133/83
[2018-12-02 16:17] VITALS: BP 164/101
[2018-12-02] MEDS ORDERED: POTA20TA82 MT (17:23)
[2018-12-02] MEDS ORDERED: METO5TAB69 MT (17:23)
[2018-12-02 19:34] VITALS: BP 136/89
== END 2018-12-02 20:05 | disposition home or self-care (01) | DRG 280 ==
LOC: ER 09:06 → 7WST 10:53 → EDBEDREQ 10:56 → ENRESERV 12:01
PROVIDERS: ADMIT Internal Medicine; ATTEND Internal Medicine
PROC: 30233N1 Transfusion of Nonautologous Red Blood Cells into Peripheral Vein, Percutaneous Approach (ICD-10-PCS; principal; 2018-11-29)
DX: K70.31 Alcoholic cirrhosis of liver with ascites (principal); K70.40 Alcoholic hepatic failure without coma; J96.00 Acute respiratory failure, unspecified whether with hypoxia or hypercapnia; K76.7 Hepatorenal syndrome; E43 Unspecified severe protein-calorie malnutrition; N17.9 Acute kidney failure, unspecified; D68.9 Coagulation defect, unspecified; E11.22 Type 2 diabetes mellitus with diabetic chronic kidney disease; D68.4 Acquired coagulation factor deficiency; E87.5 Hyperkalemia; D69.59 Other secondary thrombocytopenia; E87.2 Acidosis; D63.8 Anemia in other chronic diseases classified elsewhere; E78.00 Pure hypercholesterolemia, unspecified; E78.5 Hyperlipidemia, unspecified; F10.10 Alcohol abuse, uncomplicated; J45.909 Unspecified asthma, uncomplicated; K80.20 Calculus of gallbladder without cholecystitis without obstruction; D72.821 Monocytosis (symptomatic); R60.1 Generalized edema; I85.00 Esophageal varices without bleeding; I13.0 Hypertensive heart and chronic kidney disease with heart failure and stage 1 through stage 4 chronic kidney disease, or unspecified chronic kidney disease; N18.9 Chronic kidney disease, unspecified; K76.6 Portal hypertension; I50.9 Heart failure, unspecified; Z79.84 Long term (current) use of oral hypoglycemic drugs; Z79.899 Other long term (current) drug therapy; Z86.73 Personal history of transient ischemic attack (TIA), and cerebral infarction without residual deficits
CPT/HCPCS: 36415; 36430; 36600; 71045; 76705; 80048; 80305; 82140; 82270; 82375; 82607; 82728; 82746; 82805; 82962; 83540; 83550; 83605; 83735; 83880; 84100; 84132; 84484; 86850; 86900; 86920; 93005; 93970; 96365; 96375; 99285; G0482; J0610; J1815; J1940; J3490; J7050; J7060; J7611; J7620; P9016